=== PATIENT | male | born 1965 | race Caucasian/White ===

== ENCOUNTER 2017-02-09 09:05 | Day surgery (SDC) | payer BC ==
--- NOTE | 2017-02-09 07:33 | HP ---
DATE OF SURGERY: 02/09/2017 HISTORY OF PRESENT ILLNESS: The patient is a 51 year-old gentleman who is going to be 52 this year with no prior colonoscopy, no bloody stools, no change in bowel movements, no pain. Family history of polyps but negative for colon cancer. He is in need of screening colonoscopy as he is going to be 52 years old this year. PAST MEDICAL HISTORY: He denies any chronic illnesses. PAST SURGICAL HISTORY: Left inguinal hernia repair a few years ago. MEDICATIONS: None. ALLERGIES: NKDA. FAMILY HISTORY: Diabetes. SOCIAL HISTORY: No smoking. He reports social alcohol use denies abuse. REVIEW OF SYSTEMS: Twelve systems reviewed per admission assessment. No chest pain or palpitations other systems negative or noncontributory as above and per preadmission questionnaire. PHYSICAL EXAMINATION: GENERAL: No acute distress. HEENT: Sclerae nonicteric. NECK: No JVD. CHEST: Equal excursion, nonlabored breathing. CVS: Regular rate and rhythm. ABDOMEN: Soft. No peritoneal signs. EXTREMITIES: No significant edema. NEURO: Alert, oriented, moving extremities symmetrically. No gross motor deficits noted. RECTAL: Deferred timed to endoscopy exam. IMPRESSION: A gentleman who is going to be 52 years old this year in May 2017. He is in need of screening colonoscopy. I feel he is a candidate. He was shown the risk sheet and explained the procedure in detail but not limited to bleeding or infection, small risk of bowel injury or perforation possibly requiring open procedure, small risk of missed or nondiagnosis or incomplete exam possibly requiring barium enema, other studies or procedures, general risk of anesthesia or sedation, risk of bowel prep, postoperative risk of nausea, vomiting or cramping but not limited to. He understands and agrees to the planned procedure and will proceed with outpatient screening colonoscopy.
[2017-02-09] MEDS ORDERED: Versed 2 MG/2 ML Injection IV ONE (09:06)
[2017-02-09] MEDS ORDERED: DIPRIVAN 200 MG/20 ML IV ONE (09:06)
[2017-02-09] MEDS ORDERED: Lactated Ringers 1,000 ML IV SCH (09:30)
[2017-02-09] MEDS ORDERED: Lactated Ringers 1,000 ML IV ONE (10:58)
--- NOTE | 2017-02-09 14:31 | OP ---
SURGERY DATE/TIME: 02/09/2017 1029 PREOPERATIVE DIAGNOSIS: Need for screening colonoscopy. POSTOPERATIVE DIAGNOSES: 1) Pedunculated polyp rectosigmoid colon, more sessile polyp distal transverse colon. 2) Small raised lesion versus early polyps cecum and ascending colon. 3) Mild diverticulosis. 4) Small internal and external hemorrhoids. PROCEDURES: 1) Colonoscopy to cecum with hot biopsy small vague raised lesion cecum and ascending colon versus hyperplastic lesion. 2) Hot snare with removal of slightly more sessile polyp 1 cm in size distal transverse colon with ink spot tattoo of location. 3) Hot snare polypectomy pedunculated polyp in rectosigmoid colon with ink spot tattooing of location. 4) Hemoclip placement of oozing polypectomy site rectosigmoid with control of hemostasis. SURGEON: Dr. Rajesh Hodgson. ANESTHESIA: MAC. ESTIMATED BLOOD LOSS: Minimal. INDICATIONS: As noted above. Risks and benefits explained in detail but not limited to and consent was obtained. DESCRIPTION OF PROCEDURE AND FINDINGS: The patient was taken to the operating room. MAC anesthesia introduced. After official time out and no disagreement with planned procedure, digital rectal exam did not reveal any rectal masses. He had small internal and external hemorrhoids. Video colonoscope inserted and passed up through the tortuous sigmoid, descending, transverse colon, ascending colon to cecum. Valve and appendiceal orifice were all visualized. There was small raised lesion whether this is hyperplasia of mucosa or hyperplastic lesion was removed with hot biopsy with brief bursts of cautery. Another small area in the proximal ascending colon was removed in piecemeal with a couple of bites seen to be removed in toto with hot biopsy forceps with brief bursts of cautery, elevating well away from bowel wall. The scope is slowly and carefully withdrawn. He had some mild diverticulosis in the left colon. In what seemed to be the distal transverse versus very proximal descending colon was noted a 1 cm polyp this was a little bit flatter but it was able to get the snare around it, elevated upwards well away from the bowel wall and with brief bursts of minimal cautery was removed and retrieved in the suction per the staff. Ink spot tattooing of this location was accomplished. The scope then slowly and carefully withdrawn. He had mild diverticulosis. No signs of any other large polyps, masses or obstructing lesions. There was a 1 cm polyp in the rectosigmoid area on a long stalk and this was removed with hot snare. It should be noted that there was oozing at the base therefore the hemoclip was used and had good hemostasis at that point, this area was also marked with ink spot tattooing to vinny the location. The scope was withdrawn. He had small internal and external hemorrhoids otherwise no signs of any signs of large polyps, masses or obstructing lesions. The scope was withdrawn. The patient tolerated the procedure well. There were no immediate complications. There was no family or friends available to discuss the findings with. I will see him back in the office to go over the results of the path.
[2017-02-09 14:33] VITALS: PULSE 50; O2SAT 98
[2017-02-09 14:35] VITALS: BP 153/92
== END 2017-02-09 12:15 | disposition home or self-care (01) ==
LOC: SDC 09:05
PROVIDERS: ATTEND Surgery
PROC: 0DBH8ZX Excision of Cecum, Via Natural or Artificial Opening Endoscopic, Diagnostic (ICD-10-PCS; principal; 2017-02-09)
PROC: 0DBK8ZX Excision of Ascending Colon, Via Natural or Artificial Opening Endoscopic, Diagnostic (ICD-10-PCS; 2017-02-09)
PROC: 0DBL8ZX Excision of Transverse Colon, Via Natural or Artificial Opening Endoscopic, Diagnostic (ICD-10-PCS; 2017-02-09)
PROC: 0DBN8ZX Excision of Sigmoid Colon, Via Natural or Artificial Opening Endoscopic, Diagnostic (ICD-10-PCS; 2017-02-09)
PROC: 0DBP8ZX Excision of Rectum, Via Natural or Artificial Opening Endoscopic, Diagnostic (ICD-10-PCS; 2017-02-09)
PROC: 3E0H8GC Introduction of Other Therapeutic Substance into Lower GI, Via Natural or Artificial Opening Endoscopic (ICD-10-PCS; 2017-02-09)
DX: D12.7 Benign neoplasm of rectosigmoid junction (principal); D12.3 Benign neoplasm of transverse colon; D12.0 Benign neoplasm of cecum; D12.2 Benign neoplasm of ascending colon; K63.9 Disease of intestine, unspecified; K57.90 Diverticulosis of intestine, part unspecified, without perforation or abscess without bleeding; K64.4 Residual hemorrhoidal skin tags; K64.8 Other hemorrhoids
CPT/HCPCS: 00810; 36415; 88305; J2250; J2704